=== PATIENT | female | born 1995 | race Caucasian/White ===

== ENCOUNTER 2019-09-12 23:18 | Emergency (ER) | END 2019-09-12 23:51 | disposition left against medical advice (07) | LOC: ER 23:18 | DX: Z53.21 Procedure and treatment not carried out due to patient leaving prior to being seen by health care provider (principal) ==

== ENCOUNTER 2019-09-18 22:23 | Emergency (ER) | payer MEDICAID ==
--- NOTE | 2019-09-18 23:22 | ER Document Report ---
ED Medical Screen (RME) - General Chief Complaint: Urinary Frequency Stated Complaint: POSSIBLE KIDNEY INFECTION Primary Care Provider: NAOMI VALENCIA [Primary Care Provider] - Follow up as needed Notes: 24-year-old female with past medical history of anemia, kidney infections, and tics presenting today with right-sided flank pain for 2 days. She also has chronic pain due to her tics. Flank pain has started to wrap around her side. Has mild pain with urination. Has had a temperature of 99.4 at home. No hematuria noted. Last kidney infection was in 2018. Is 3 days late on starting her period. General: tics, stuttering Back: (+) right sided CVA tenderness I have greeted and performed a rapid initial assessment of this patient. A comprehensive ED assessment and evaluation of the patient, analysis of test results and completion of medical decision making process will be conducted by an additional ED providers. - Related Data Allergies/Adverse Reactions: doxycycline Allergy (Verified 09/18/19 23:04) iodine Allergy (Verified 09/18/19 22:35) povidone-iodine [From Betadine] Allergy (Verified 09/18/19 23:05) soap [From Betadine] Allergy (Verified 09/18/19 23:05) Past Medical History - Social History Frequency of alcohol use: None Drug Abuse: None Physical Exam - Vital signs Vitals: Temp Pulse Resp BP Pulse Ox 99.4 F 124 H 17 114/75 100 09/18/19 22:28 09/18/19 22:28 09/18/19 22:28 09/18/19 22:28 09/18/19 22:28 Course - Vital Signs Vital signs: Temp Pulse Resp BP Pulse Ox 99.4 F 124 H 17 114/75 100 09/18/19 22:28 09/18/19 22:28 09/18/19 22:28 09/18/19 22:28 09/18/19 22:28 Doctor's Discharge - Discharge Referrals: NAOMI VALENCIA [Primary Care Provider] - Follow up as needed
[2019-09-19 00:04] LABS: ABSOLUTE EOSINOPHILS # (AUTO) 0.1 10^3/uL (0.0-0.6); ABSOLUTE LYMPHOCYTES (AUTO) 1.3 10^3/uL (0.5-4.7); ABSOLUTE MONOCYTES (AUTO) 0.7 10^3/uL (0.1-1.4); ABSOLUTE NEUT (AUTO) 7.5 10^3/uL (1.7-8.2); BASOPHILS % (AUTO) 0.4 % (0-2); EOSINOPHILS % (AUTO) 0.9 % (0-6); HEMATOCRIT 36.5 % (36.0-47.0); HEMOGLOBIN 12.3 g/dL (12.0-15.5); LYMPHOCYTES % (AUTO) 13.7 % (13-45); MEAN CORPUSCULAR HEMOGLOBIN 27.9 pg (27.0-33.4); MEAN CORPUSCULAR HGB CONC 33.7 g/dL (32.0-36.0); MEAN CORPUSCULAR VOLUME 83 fl (80-97); MONOCYTES % (AUTO) 7.3 % (3-13); PLATELET COUNT 264 10^3/uL (150-450); RED BLOOD COUNT 4.43 10^6/uL (3.72-5.28); RED CELL DISTRIBUTION WIDTH 14.9 % (11.5-14.0); SEGMENTED NEUTROPHILS % (AUTO) 77.7 % (42-78); TOTAL CELLS COUNTED % (AUTO) 100 %; WHITE BLOOD COUNT 9.7 10^3/uL (4.0-10.5)
[2019-09-19 00:16] LABS: ALBUMIN 4.4 g/dL (3.5-5.0); ALKALINE PHOSPHATASE 67 U/L (38-126); ANION GAP 5 (5-19); ASPARTATE AMINO TRANSFERASE 19 U/L (14-36); BILIRUBIN,TOTAL 0.4 mg/dL (0.2-1.3); BLOOD UREA NITROGEN 13 mg/dL (7-20); CALCIUM 9.1 mg/dL (8.4-10.2); CARBON DIOXIDE 24 mmol/L (22-30); CHLORIDE 108 mmol/L (98-107); GLUCOSE 112 mg/dL (75-110); POTASSIUM 4.1 mmol/L (3.6-5.0); TOTAL PROTEIN 7.6 g/dL (6.3-8.2)
[2019-09-19 00:22] LABS: APPEARANCE,URINE CLOUDY; BILIRUBIN,URINE NEGATIVE (NEGATIVE); COLOR,URINE YELLOW; GLUCOSE, URINE NEGATIVE (NEGATIVE); KETONES,URINE NEGATIVE (NEGATIVE); LEUKOCYTE ESTERASE,URINE LARGE (NEGATIVE); NITRITE,URINE NEGATIVE (NEGATIVE); PROTEIN,URINE 100 mg/dL (NEGATIVE); UROBILINOGEN,URINE NEGATIVE mg/dL (<2.0)
[2019-09-19] MEDS ORDERED: ONDANSETRON HCL INJ/PF 4 MG/2 ML SDV IV ONE (01:44)
[2019-09-19] MEDS ORDERED: NORMAL SALINE 1000 ML 1,000 ML IV ONE (01:44)
[2019-09-19] MEDS ORDERED: MORPHINE SULFATE 10 MG/ML INJ IV ONE (01:44)
[2019-09-19] MEDS ORDERED: CEFTRIAXONE 1 GM/D5W RTU 1 GM/50 ML RTUPB IV ONE (01:44)
--- NOTE | 2019-09-19 01:46 | ER Document Report ---
ED GI/ - General Chief Complaint: Urinary Frequency Stated Complaint: POSSIBLE KIDNEY INFECTION Time Seen by Provider: 09/19/19 01:31 Notes: Patient is a 24-year-old female that comes emergency department for chief complaint of progressively worsening right side and flank pain for the past 2 days. She states that she has pain with urination as well. She has not had a fever at home but she has felt chills. She denies vomiting, injury, vaginal bleeding or discharge. She states she has had kidney infections in the past and this feels the same. She denies history of kidney stones or family history of kidney stones. Remaining medical history includes anemia and chronic tics. - Related Data Allergies/Adverse Reactions: doxycycline Allergy (Verified 09/18/19 23:04) iodine Allergy (Verified 09/18/19 22:35) povidone-iodine [From Betadine] Allergy (Verified 09/18/19 23:05) soap [From Betadine] Allergy (Verified 09/18/19 23:05) Past Medical History - General Information source: Patient - Social History Smoking Status: Never Smoker Frequency of alcohol use: None Drug Abuse: None Lives with: Family Family History: Reviewed & Not Pertinent Review of Systems - Review of Systems Constitutional: See HPI EENT: No symptoms reported Cardiovascular: No symptoms reported Respiratory: No symptoms reported Gastrointestinal: See HPI Genitourinary: See HPI Female Genitourinary: No symptoms reported Musculoskeletal: No symptoms reported Skin: No symptoms reported Hematologic/Lymphatic: No symptoms reported Neurological/Psychological: No symptoms reported Physical Exam - Vital signs Vitals: Temp Pulse Resp BP Pulse Ox 99.4 F 124 H 17 114/75 100 09/18/19 22:28 09/18/19 22:28 09/18/19 22:28 09/18/19 22:28 09/18/19 22:28 - Notes Notes: GENERAL: Alert, interacts well. No acute distress. HEAD: Normocephalic, atraumatic. EYES: Pupils equal, round, and reactive to light. Extraocular movements intact. ENT: Oral mucosa moist, tongue midline. Oropharynx unremarkable. Airway patent. NECK: Full range of motion. Supple. Trachea midline. No lymphadenopathy. LUNGS: Clear to auscultation bilaterally, no wheezes, rales, or rhonchi. No respiratory distress. Non-tender chest wall. HEART: Borderline tachycardic, normal rhythm, no murmur ABDOMEN: Soft, non-tender. Non-distended. Bowel sounds present in all 4 quadrants. EXTREMITIES: Moves all 4 extremities spontaneously. No edema, normal radial and dorsalis pedis pulses bilaterally. No cyanosis. BACK: Right-sided CVA tenderness, left unremarkable. No cervical, thoracic, lumbar midline tenderness. No saddle anesthesia, normal distal neurovascular exam. Moves all extremities in full range of motion. NEUROLOGICAL: Patient has intermittent tics with movement and speech. Alert and oriented x3. Normal speech. Cranial nerves II through XII grossly intact. Strength 5/5 in all extremities. PSYCH: Normal affect, normal mood. SKIN: Warm, dry, normal turgor. No rashes or lesions noted. Course - Re-evaluation Re-evalutation: Patient has an obvious tic with both movements and speech but this is reportedly chronic. Patient is tachycardic but on repeat this is only borderline, no fever. No hypotension. Abdomen soft and benign. She does have some right- sided CVA tenderness but her remaining evaluation is unremarkable. CBC unremarkable, chemistry unremarkable, urine does show infection. I discussed with patient. Based on her slowly worsening symptoms, dysuria, history of the same I do have a low suspicion of infected ureterolithiasis, decision was made not to CAT scan patient after discussing pros and cons. Started on antibiotics, discussed follow-up, discussed return precautions. Patient states appreciation and agreement. Stable and well-appearing at time of discharge. - Vital Signs Vital signs: Temp Pulse Resp BP Pulse Ox 98.1 F 106 H 14 112/71 100 09/19/19 03:16 09/19/19 03:16 09/19/19 03:16 09/19/19 03:16 09/19/19 03:16 - Laboratory Result Diagrams: 09/18/19 23:49 09/18/19 23:49 Laboratory results interpreted by me: 09/18/19 09/18/19 09/18/19 23:44 23:49 23:49 RDW 14.9 H Chloride 108 H Glucose 112 H Urine Protein 100 H Urine Blood SMALL H Ur Leukocyte Esterase LARGE H Discharge - Discharge Clinical Impression: Flank pain, Nausea Urinary tract infection Qualifiers: Urinary tract infection type: site unspecified Hematuria presence: without hematuria Qualified Code(s): N39.0 - Urinary tract infection, site not specified Condition: Stable Disposition: HOME, SELF-CARE Additional Instructions: Your evaluation is most consistent with a developing kidney infection. Take antibiotics as prescribed to completion. Take Zofran if needed for nausea. You can take provided pain medication if needed, otherwise take ibuprofen or Tylenol. Drink plenty of fluids and rest. Follow-up with primary care for additional management. Come back if you are worse including vomiting, spiking fevers, severe worsening pain, or any other concerning symptoms. Prescriptions: Cephalexin Monohydrate [Keflex 500 mg Capsule] 500 mg PO QID 10 Days #40 capsule Ondansetron [Zofran Odt 4 mg Tablet] 1 - 2 tab PO Q4H PRN #15 tab.rapdis PRN Reason: For Nausea/Vomiting
[2019-09-19] MEDS ORDERED: HYDROCODONE/ACETAMINOPHEN 5-325 MG (6 TAB/ER DISP) PO PRN (03:03)
[2019-09-19 03:17] VITALS: BP 112/71
== END 2019-09-19 03:32 | disposition home or self-care (01) ==
LOC: ER 22:23
DX: N39.0 Urinary tract infection, site not specified (principal); R11.0 Nausea; R68.83 Chills (without fever); Z88.1 Allergy status to other antibiotic agents; Z88.3 Allergy status to other anti-infective agents
CPT/HCPCS: 99284; 96375; 96365; 36415; 87040; 87086; 85025; 81025; 87088; 80053; 81001; 87186; J2270; J2405; J7030; J0696

== ENCOUNTER 2019-10-23 21:11 | Emergency (ER) | payer MEDICAID ==
[2019-10-23 23:38] LABS: APPEARANCE,URINE SLIGHTLY-CLOUDY; BILIRUBIN,URINE NEGATIVE (NEGATIVE); COLOR,URINE YELLOW; GLUCOSE, URINE NEGATIVE (NEGATIVE); KETONES,URINE TRACE mg/dL (NEGATIVE); LEUKOCYTE ESTERASE,URINE SMALL (NEGATIVE); NITRITE,URINE NEGATIVE (NEGATIVE); PROTEIN,URINE NEGATIVE (NEGATIVE); URINE SPECIFIC GRAVITY 1.017; UROBILINOGEN,URINE NEGATIVE mg/dL (<2.0)
[2019-10-23 23:39] LABS: ABSOLUTE BASOPHILS # (AUTO) 0.1 10^3/uL (0.0-0.2); ABSOLUTE EOSINOPHILS # (AUTO) 0.1 10^3/uL (0.0-0.6); ABSOLUTE LYMPHOCYTES (AUTO) 2.3 10^3/uL (0.5-4.7); ABSOLUTE MONOCYTES (AUTO) 0.4 10^3/uL (0.1-1.4); ABSOLUTE NEUT (AUTO) 4.2 10^3/uL (1.7-8.2); BASOPHILS % (AUTO) 1.1 % (0-2); EOSINOPHILS % (AUTO) 0.8 % (0-6); HEMATOCRIT 35.3 % (36.0-47.0); HEMOGLOBIN 12.2 g/dL (12.0-15.5); LYMPHOCYTES % (AUTO) 32.3 % (13-45); MEAN CORPUSCULAR HEMOGLOBIN 27.7 pg (27.0-33.4); MEAN CORPUSCULAR HGB CONC 34.4 g/dL (32.0-36.0); MEAN CORPUSCULAR VOLUME 81 fl (80-97); MONOCYTES % (AUTO) 6.3 % (3-13); PLATELET COUNT 296 10^3/uL (150-450); RED BLOOD COUNT 4.39 10^6/uL (3.72-5.28); RED CELL DISTRIBUTION WIDTH 14.8 % (11.5-14.0); SEGMENTED NEUTROPHILS % (AUTO) 59.5 % (42-78); TOTAL CELLS COUNTED % (AUTO) 100 %; WHITE BLOOD COUNT 7.1 10^3/uL (4.0-10.5)
--- NOTE | 2019-10-23 23:47 | ER Document Report ---
ED Medical Screen (RME) - General Chief Complaint: OB Problem (<20wks) Stated Complaint: VAGINAL BLEEDING,ABDOMINAL PAIN-5 WEEKS PREG Time Seen by Provider: 10/23/19 23:00 Notes: Patient is a 24-year-old female who presents emergency department with a chief complaint of vaginal bleeding. Patient states that she is about 5 and half weeks . States that she feels like she is miscarrying. Exam: Patient appears slightly pale. Tenderness to right lower abdomen. I have greeted and performed a rapid initial assessment of this patient. A comprehensive ED assessment and evaluation of the patient, analysis of test results and completion of medical decision making process will be conducted by an additional ED providers. - Related Data Allergies/Adverse Reactions: doxycycline Allergy (Verified 09/18/19 23:04) iodine Allergy (Verified 09/18/19 22:35) povidone-iodine [From Betadine] Allergy (Verified 09/18/19 23:05) soap [From Betadine] Allergy (Verified 09/18/19 23:05) Home Medications: vitamins. Physical Exam - Vital signs Vitals: Temp Pulse Resp BP Pulse Ox 98.5 F 102 H 15 107/71 100 10/23/19 21:22 10/23/19 21:22 10/23/19 21:22 10/23/19 21:22 10/23/19 21:22 Course - Vital Signs Vital signs: Temp Pulse Resp BP Pulse Ox 98.5 F 102 H 15 107/71 100 10/23/19 21:22 10/23/19 21:22 10/23/19 21:22 10/23/19 21:22 10/23/19 21:22 - Laboratory Result Diagrams: 10/23/19 23:08 10/23/19 23:08
[2019-10-24 00:18] LABS: ALBUMIN 4.4 g/dL (3.5-5.0); ALKALINE PHOSPHATASE 54 U/L (38-126); ANION GAP 7 (5-19); ASPARTATE AMINO TRANSFERASE 21 U/L (14-36); BILIRUBIN,DIRECT 0.2 mg/dL (0.0-0.4); BILIRUBIN,TOTAL 0.3 mg/dL (0.2-1.3); BLOOD UREA NITROGEN 7 mg/dL (7-20); CALCIUM 9.3 mg/dL (8.4-10.2); CARBON DIOXIDE 26 mmol/L (22-30); CHLORIDE 104 mmol/L (98-107); GLUCOSE 98 mg/dL (75-110); POTASSIUM 4.2 mmol/L (3.6-5.0)
--- NOTE | 2019-10-24 01:15 | RADIOLOGY REPORT (SQ) ---
FIRST TRIMESTER OBSTETRIC ULTRASOUND: 10/24/2019 12:12 AM CDT COMPARISON: None available HISTORY: 24-year old patient with vaginal bleeding, . TECHNIQUE: Multiple campbell scale and color Doppler images of the pelvis were obtained transvaginally. FINDINGS: The uterus measures 8.5 x 6.9 x 4.0 cm. There is a single intrauterine saclike structure present with a probable yolk sac. No perigestational hemorrhage is seen. The cervix measures 2.6 cm in length. The right ovary measures 3.2 x 2.5 x 2.4 cm. There is a cystic area within the right ovary measuring up to 1.8 cm. The left ovary is obscured by overlying bowel gas. Venous waveforms are obtained from the right ovary. Trace free fluid is seen in the cul-de-sac. IMPRESSION: There is a single intrauterine saclike structure with a yolk sac and no discrete pole. This may represent a normal early of less than six weeks. Obstetric follow up for routine care should be performed.
--- NOTE | 2019-10-24 03:06 | ER Document Report ---
ED General - General Chief Complaint: OB Problem (<20wks) Stated Complaint: VAGINAL BLEEDING,ABDOMINAL PAIN-5 WEEKS PREG Time Seen by Provider: 10/23/19 23:00 Primary Care Provider: GAGE LARRY MD [ACTIVE STAFF] - 10/26/19 9:00 am (call today during business hours and arrange follow up in Dr. Larry's office Tuesday morning.) Notes: 24-year-old female G6, P2 with 4 prior early miscarriages LMP early September presents with intermittent cramping midline pelvic pain worse for approximately 1 day associated with scant dark vaginal bleeding for a day. No [employer] care this , patient denies any vaginal discharge, fever, vomiting, urinary symptoms, bleeding diatheses, anticoagulation, dizziness, fainting, trauma. is desired. - Related Data Allergies/Adverse Reactions: doxycycline Allergy (Verified 09/18/19 23:04) iodine Allergy (Verified 09/18/19 22:35) povidone-iodine [From Betadine] Allergy (Verified 09/18/19 23:05) soap [From Betadine] Allergy (Verified 09/18/19 23:05) Home Medications: vitamins. Past Medical History - General Information source: Patient - Social History Smoking Status: Never Smoker Family History: Reviewed & Not Pertinent Review of Systems - Review of Systems Notes: REVIEW OF SYSTEMS: CONSTITUTIONAL : Denies fever, chills, or sweats. EENT: Denies recent cold/sinus symptoms, denies throat pain CARDIOVASCULAR: Denies chest pain, DELMA RESPIRATORY: Denies cough, denies shortness of breath. GASTROINTESTINAL: Denies abdominal pain, nausea/vomiting. GENITOURINARY: Denies difficulty urinating, painful urination. FEMALE GENITOURINARY: + abnormal vaginal bleeding, -vaginal discharge. MUSCULOSKELETAL: Denies neck pain, back pain. SKIN: Denies rash or skin lesions. HEMATOLOGIC : Denies easy bruising or bleeding. LYMPHATIC: Denies swollen, enlarged glands. NEUROLOGICAL: Denies headache, denies change in gait. Physical Exam - Vital signs Vitals: Temp Pulse Resp BP Pulse Ox 98.5 F 102 H 15 107/71 100 10/23/19 21:22 10/23/19 21:22 10/23/19 21:22 10/23/19 21:22 10/23/19 21:22 - Notes Notes: PHYSICAL EXAMINATION: GENERAL: Well-appearing, well-nourished and in no acute distress. HEAD: Atraumatic, normocephalic. EYES: Pupils equal round and appropriate constriction, sclera anicteric, conjunctiva are normal. ENT: nares patent, moist mucous membranes. NECK: Normal range of motion, supple without lymphadenopathy LUNGS: Normal respiratory rate and effort, speaking in full sentences HEART: Regular rate, no JVD, no lower extremity edema EXTREMITIES: Normal range of motion, no pitting or edema. No cyanosis. NEUROLOGICAL: Awake, alert, conversing appropriately, moves all extremities spontaneously. SKIN: Warm, Dry, normal turgor, no rashes or lesions noted. Course - Re-evaluation Re-evalutation: 10/24/19 03:14 Likely miscarriage, gestational and yolk sac reported on ultrasound, patient refused physical exam stating that she just wanted to go home. This is reasonable as patient very well-appearing and reporting low volume bleeding and has no concerning findings on blood work and stable vitals and pain controlled without pain meds which patient declined. I gave patient follow-up with Dr. Larry for 48-hour repeat beta and give patient extensive return to ED precautions which she demonstrated understanding of. Patient ready for d ischarge. - Vital Signs Vital signs: Temp Pulse Resp BP Pulse Ox 98.5 F 102 H 15 107/71 100 10/23/19 21:22 10/23/19 21:22 10/23/19 21:22 10/23/19 21:22 10/23/19 21:22 - Laboratory Result Diagrams: 10/23/19 23:08 10/23/19 23:08 Laboratory results interpreted by me: 10/23/19 10/23/19 10/23/19 23:08 23:08 23:08 Hct 35.3 L RDW 14.8 H Sodium 136.9 L Beta HCG, Quant 4983.10 H Urine Ketones TRACE H Ur Leukocyte Esterase SMALL H Discharge - Discharge Clinical Impression: Threatened miscarriage in early Disposition: HOME, SELF-CARE Additional Instructions: Is likely that your current symptoms are due to a miscarriage, but is still possible that you could have a viable or an ectopic outside of the uterus which is a very dangerous condition. It is very important that you follow-up with extractions technologist Dr. Larry in 2 days. If you have any worsening pain, heavy bleeding of pad per hour or more, dizziness, fainting, fever, vaginal discharge, or any other worsening or alarming symptoms return to the emergency department immediately Referrals: GAGE LARRY MD [ACTIVE STAFF] - 10/26/19 9:00 am (call today during business hours and arrange follow up in Dr. Larry's office Tuesday morning.)
[2019-10-24 03:20] VITALS: BP 93/63
== END 2019-10-24 03:20 | disposition home or self-care (01) ==
LOC: ER 21:11
DX: O20.0 Threatened abortion (principal); Z3A.01 Less than 8 weeks gestation of pregnancy; Z79.899 Other long term (current) drug therapy; Z88.1 Allergy status to other antibiotic agents; Z88.3 Allergy status to other anti-infective agents
CPT/HCPCS: 36415; 76817; 80053; 81001; 83690; 84702; 85025; 86900; 86901; 93976; 99284